=== PATIENT | male | born 1970 | race Caucasian/White ===

== ENCOUNTER 2019-04-17 19:37 | Emergency (ER) | payer MEDICAID, OTHER ==
[~2019-04-17] VITALS: Ht 157.5 cm; Wt 61.0 kg
[2019-04-17 19:46] VITALS: Ht 157.5 cm; Wt 61.0 kg
[2019-04-17] MEDS ORDERED: SULF1TAB31 PO (23:13)
[2019-04-17] MEDS ORDERED: CEPH500C PO (23:13)
[2019-04-17] MEDS ORDERED: ACET-141 PO (23:14)
[2019-04-17] MEDS ORDERED: IBUP-1561 PO (23:14)
--- NOTE | 2019-04-17 23:15 | ERD ---
ER Documentation Chief Complaint Chief Complaint RIGHT DORSAL FOOT PAIN WITH MILD SWELLING, NO TRAUMA REPORTED ROS All systems reviewed and are negative except as per history of present illness. Medications Home Meds Active Scripts Acetaminophen* (Acetaminophen*) 500 MG Extra Strength Tablet, 500 MG PO Q4H PRN for PAIN AND OR ELEVATED TEMP, #30 TAB Prov:CIARRA HOUSTON DO 04/17/19 Ibuprofen* (Motrin*) 400 Mg Tab, 400 MG PO Q6H PRN for PAIN AND OR ELEVATED TEMP, #30 TAB Prov:CIARRA HOUSTON DO 04/17/19 Sulfamethoxazole/Trimethoprim* (Bactrim Ds* Tablet) 1 Each Tablet, 1 TAB PO BID for skin infection for 5 Days, #10 TAB Prov:CIARRA HOUSTON DO 04/17/19 Cephalexin* (Cephalexin*) 500 Mg Capsule, 500 MG PO Q8 for skin infection for 5 Days, #15 CAP Prov:CIARRA HOUSTON DO 04/17/19 Allergies Allergies: Coded Allergies: No Known Allergy (Unverified , 12/07/14) PMhx/Soc Medical and Surgical Hx: pt denies Medical Hx, pt denies Surgical Hx Hx Alcohol Use: No Hx Substance Use: No Hx Tobacco Use: No Smoking Status: Never smoker Physical Exam Vitals Vital Signs Date Temp Pulse Resp B/P (MAP) Pulse Ox O2 O2 Flow FiO2 Time Delivery Rate 04/17/19 98.3 88 18 158/74 99 19:46 (102) Physical Exam Const: No acute distress Head: Atraumatic Eyes: Normal Conjunctiva ENT: Normal External Ears, Nose and Mouth. Neck: Full range of motion. No meningismus. Resp: Clear to auscultation bilaterally Cardio: Regular rate and rhythm, no murmurs Abd: Soft, non tender, non distended. Normal bowel sounds Skin: No petechiae or rashes Back: No midline or flank tenderness Ext: No cyanosis, or edema Neur: Awake and alert Psych: Normal Mood and Affect Departure Diagnosis: Primary Impression: Cellulitis Site of cellulitis: extremity Site of cellulitis of extremity: lower extremity Laterality: right Qualified Codes: L03.115 - Cellulitis of right lower limb Condition: Fair Patient Instructions: Cellulitis Referrals: [facility] YOU HAVE RECEIVED A MEDICAL SCREENING EXAM AND THE RESULTS INDICATE THAT YOU DO NOT HAVE A CONDITION THAT REQUIRES URGENT TREATMENT IN THE EMERGENCY DEPARTMENT. FURTHER EVALUATION AND TREATMENT OF YOUR CONDITION CAN WAIT UNTIL YOU ARE SEEN IN YOUR DOCTORS OFFICE WITHIN THE NEXT 1-2 DAYS. IT IS YOUR RESPONSIBILITY TO MAKE AN APPOINTMENT FOR FOLOW-UP CARE. IF YOU HAVE A PRIMARY DOCTOR --you should call your primary doctor and schedule an appointment IF YOU DO NOT HAVE A PRIMARY DOCTOR YOU CAN CALL OUR PHYSICIAN REFERRAL HOTLINE AT IF YOU CAN NOT AFFORD TO SEE A PHYSICIAN YOU CAN CHOSE FROM THE FOLLOWING [facility] CL[facility] [address] [facility] [address] [facility] [address] [facility] [address] [facility] [address]. [facility]. [address] Additional Instructions: Llame al doctor MAANA y antonieta era GIL PARA DENTRO DE 1-2 KRUEGER.Dgale a la secretaria que nosotros le instruimos hacer esta gil.Avise o llame si barbour condicin se empeora antes de la gil. Regresa aqui si peor o no mejor. CIARRA HOUSTON DO Apr 17, 2019 23:15
[2019-04-17 23:20] VITALS: BP 148/65; PULSE 77; RESP 17
== END 2019-04-17 23:21 | disposition home or self-care (01) ==
LOC: FTE 19:37
DX: L03.115 Cellulitis of right lower limb (principal)
CPT/HCPCS: 73630; Z7502